=== PATIENT | female | born 1955 | race Caucasian/White ===

== ENCOUNTER 2017-03-30 07:13 | Day surgery (SDC) | payer OTHER ==
[2017-03-29 11:30] VITALS: BMI 50.6
[2017-03-30] MEDS ORDERED: LIDOCAINE HCL/PF 2% SDV 5ML VIAL ONE (07:55)
[2017-03-30] MEDS ORDERED: SUCCINYLCHOLINE CHLORIDE 200 MG/10 ML VIAL ONE (07:56)
[2017-03-30] MEDS ORDERED: PROPOFOL 20 ML ONE ×3 (07:56)
--- NOTE | 2017-03-30 08:36 | PROC ---
Endoscopy Procedure Endoscopy procedure completed. Please see scanned procedure report.
[2017-03-30 08:41] VITALS: TEMP 98.2
[2017-03-30 09:27] VITALS: BP 148/76; PULSE 56
--- NOTE | 2017-03-31 13:42 | PATH ---
Surgical Pathology Report Patient Name: LUI TRUJILLO [facility] Rec. #: [id number] /Age/Gender: 1955 (Age: 61) / F Account: [id number] Location: [facility]-ENDOSCOPY Taken: 03/30/2017 Received: 03/30/2017 Reported: 03/31/2017 Physicians: Ian Rodas M.D. Specimen(s) Received A: BX DUODENUM B: BX ANTRUM C: ASCENDING COLON D: BX TERMINAL ILEUM E: COLON POLYP @50CM F: BX DESCENDING COLON Clinical History Preoperative diagnosis: Diarrhea, change in bowel habits Postoperative diagnosis: Diarrhea, colon polyp Final Diagnosis A. DUODENUM, BIOPSY: DUODENAL MUCOSA WITHOUT SIGNIFICANT PATHOLOGIC FINDINGS. B. STOMACH, ANTRUM, BIOPSY: GASTRIC ANTRAL MUCOSA WITH MILD CHRONIC GASTRITIS. IMMUNOHISTOCHEMICAL STAIN FOR H. PYLORI IS NEGATIVE. C. DESCENDING COLON, BIOPSY: POLYPOID COLONIC MUCOSA WITH PROMINENT LYMPHOID AGGREGATE. D. ILEUM, BIOPSY: ILEAL MUCOSA WITHOUT SIGNIFICANT PATHOLOGIC FINDINGS. E. COLON, 50 CM, POLYP, POLYPECTOMY: TUBULAR ADENOMA. F. DESCENDING COLON, BIOPSY: POLYPOID COLONIC MUCOSA WITHOUT SIGNIFICANT PATHOLOGIC FINDINGS. Electronically Signed Ynes Glynn M.D. Gross Description A. Received in formalin, labeled "biopsy duodenum" are 4 tanner, irregular portions of soft tissue ranging from 0.1-0.3 cm. in greatest dimension. The specimens are submitted in toto in one cassette. B. Received in formalin, labeled "biopsy antrum" are 2 tanner, irregular portions of soft tissue measuring 0.3 and 0.7 cm. in greatest dimension. The specimens are submitted in toto in one cassette. C. Received in formalin, labeled "biopsy ascending colon" are 2 tanner, irregular portions of soft tissue averaging 0.4 cm. in greatest dimension. The specimens are submitted in toto in one cassette. D. Received in formalin, labeled "biopsy terminal ileum" are 2 tanner, irregular portions of soft tissue measuring 0.1 and 0.2 cm. in greatest dimension. The specimens are submitted in toto in one cassette. E. Received in formalin, labeled "colon polyp at 50 cm" is a tanner, irregular portion of soft tissue measuring 0.4 cm. in greatest dimension. The specimen is submitted in toto in one cassette. F. Received in formalin, labeled "biopsy descending colon" are 2 tanner, irregular portions of soft tissue measuring 0.3 and 0.4 cm. in greatest dimension. The specimens are submitted in toto in one cassette. 03/30/201703/30/2017
== END 2017-03-30 09:39 | disposition home or self-care (01) ==
LOC: JASU-ENDO 07:13
PROVIDERS: ATTEND Internal Medicine Gastroenterology
PROC: 0DBL8ZX Excision of Transverse Colon, Via Natural or Artificial Opening Endoscopic, Diagnostic (ICD-10-PCS; 2017-03-30)
PROC: 0DBM8ZX Excision of Descending Colon, Via Natural or Artificial Opening Endoscopic, Diagnostic (ICD-10-PCS; 2017-03-30)
PROC: 3E0H8GC Introduction of Other Therapeutic Substance into Lower GI, Via Natural or Artificial Opening Endoscopic (ICD-10-PCS; 2017-03-30)
PROC: 0DB98ZX Excision of Duodenum, Via Natural or Artificial Opening Endoscopic, Diagnostic (ICD-10-PCS; 2017-03-30)
PROC: 0DB68ZX Excision of Stomach, Via Natural or Artificial Opening Endoscopic, Diagnostic (ICD-10-PCS; 2017-03-30)
PROC: 0DBK8ZX Excision of Ascending Colon, Via Natural or Artificial Opening Endoscopic, Diagnostic (ICD-10-PCS; principal; 2017-03-30 08:00)
DX: K52.9 Noninfective gastroenteritis and colitis, unspecified (principal); K63.5 Polyp of colon
CPT/HCPCS: 88305-TC; 88342-TC

== ENCOUNTER 2020-12-27 11:04 | Emergency (ER) | payer OTHER ==
[2020-12-27 11:18] VITALS: BP 155/75; PULSE 80; TEMP 97.8; BMI 48.9
== END 2020-12-27 14:58 | disposition home or self-care (01) ==
LOC: JER 11:04
DX: I87.332 Chronic venous hypertension (idiopathic) with ulcer and inflammation of left lower extremity (principal); G89.18 Other acute postprocedural pain
CPT/HCPCS: 93970-TC; 99284-25